=== PATIENT | male | born 1995 | race Hispanic/Latino ===

== ENCOUNTER 2018-04-19 11:44 | Emergency (ER) | payer SELFPAY ==
[2018-04-19] MEDS ORDERED: AMOXicillin 250 MG CAP ONE (12:41)
== END 2018-04-19 12:44 | disposition home or self-care (01) ==
LOC: NAV ERS 11:44
DX: H72.91 Unspecified perforation of tympanic membrane, right ear (principal)
CPT/HCPCS: 99282